=== PATIENT | female | born 1945 | race Hispanic/Latino ===

== ENCOUNTER 2021-09-22 09:59 | Outpatient (CLI) | payer MEDICARE | END 2021-09-22 10:00 | disposition home or self-care (01) | LOC: BURCT 09:59 | PROVIDERS: ATTEND Family Medicine | DX: S09.90XA Unspecified injury of head, initial encounter (principal) | CPT/HCPCS: 70450 ==

== ENCOUNTER 2022-05-03 12:47 | Observation (INO) | payer OTHER ==
[2022-05-03 15:04] LABS: #Basophils 0.1 thou/uL (0.0-0.2); #Eosinphils 0.2 thou/uL (0.0-0.7); #Monocytes 0.5 thou/uL (0.11-0.59); #Neutrophils 3.1 thou/uL (1.40-6.50); %Basophils 1.9 % (0.0-1.0); %Eosinophils 3.2 % (0.0-10.0); %Lymphocytes 34.1 % (21.0-51.0); %Monocytes 8.7 % (0.0-10.0); %Neutrophils 52.1 % (42.0-75.0); Hemoglobin 12.3 g/dL (12.0-16.0); Mean Corpuscular HGB CONC 32.5 g/dL (32.0-36.0); Mean Corpuscular Hemoglobin 31.9 pg (27.0-31.0); Mean Corpuscular Volume 98.2 fl (78.0-98.0); Platelet Count 273 10x3/uL (130-400); RBC Distribution Width 12.5 % (11.5-14.5); Red Blood Cell (RBC) Count 3.84 mill/uL (4.20-5.40)
[2022-05-03 15:20] LABS: ALT (SGPT) 8 U/L (8-55); AST (SGOT) 12 U/L (5-34); Albumin 3.6 g/dL (3.4-4.8); Alkaline Phosphatase 77 U/L (40-110); Anion Gap 13 mmol/L (10-20); BUN (Urea Nitrogen) 10 mg/dL (9.8-20.1); Bilirubin, Total 0.6 mg/dL (0.2-1.2); Calc. Creatinine Clearance 0 mL/min (70-130); Calcium 9.2 mg/dL (7.8-10.44); Carbon Dioxide 27 mmol/L (23-31); Chloride 101 mmol/L (98-107); Estimated GFR 49; Globulin 3.7 g/dL (2.4-3.5); Glucose 102 mg/dL (83-110); Potassium 3.8 mmol/L (3.5-5.1); Protein, Total 7.3 g/dL (5.8-8.1); Sodium 137 mmol/L (136-145)
[2022-05-03 15:27] LABS: Bilirubin Negative (Negative); Blood, Urine Negative (Negative); Clarity Slightly Cloudy (Clear); Glucose, Urine (Dipstick) Negative (Negative); Ketone, Urine Negative (Negative); Leukocyte Small (Negative); Nitrite Negative (Negative); Protein, Urine (Dipstick) Negative (Neg-Trace); Specific Gravity, Urine 1.015 (1.005-1.030); Urobilinogen 0.2 mg/dL (Less than 2)
[2022-05-03 15:35] LABS: Bacteria/HPF 4+ HPF (None Seen); RBC/HPF None Seen HPF (0-3)
[2022-05-03] MEDS ORDERED: FLU VACC QS2022-23(65YR UP)/PF 240 MCG/0.7 ML SYRINGE IM ONE (16:00)
[2022-05-03] MEDS ORDERED: Piperacillin/Tazobactam 3.375 GM in Sodium Chloride 0.9% 100 ML IVPB SCH (17:00)
[2022-05-03] MEDS ORDERED: Nitroglycerin 0.4 MG TAB (25 Tab Bottle) SL PRN (17:44)
[2022-05-03] MEDS ORDERED: Ondansetron ODT 4 MG TAB PO PRN (17:44)
[2022-05-03] MEDS ORDERED: Nystatin Powder 15 GM BOT TOP PRN (17:47)
[2022-05-03] MEDS ORDERED: CAFFEINE PO PRN (18:01)
[2022-05-03] MEDS ORDERED: ACETAMINOPHEN PO PRN (18:01)
[2022-05-03] MEDS ORDERED: ASPIRIN PO PRN (18:01)
[2022-05-03] MEDS ORDERED: traZODone HCl 50 MG TAB PO SCH (21:00)
[2022-05-03] MEDS ORDERED: FLUoxetine HCl 10 MG CAP PO SCH (21:00)
[2022-05-03] MEDS: Piperacillin/Tazobactam 3.375 GM in Sodium Chloride 0.9% 100 ML IVPB SCH (21:47)
[2022-05-04] MEDS: traMADol HCl 50 MG TAB PO PRN ×2 (04:10→10:50)
[2022-05-04] MEDS: Piperacillin/Tazobactam 3.375 GM in Sodium Chloride 0.9% 100 ML IVPB SCH ×2 (05:23→13:43)
[2022-05-04] MEDS ORDERED: Levothyroxine Sodium 50 MCG TAB PO SCH (06:00)
[2022-05-04 08:21] VITALS: TEMP 98
[2022-05-04 08:21] LABS: SARS-CoV-2 NAA Rapid Test Not Detected (NotDetected)
[2022-05-04] MEDS ORDERED: Losartan Potassium 50 MG TAB PO SCH (09:00)
[2022-05-04] MEDS ORDERED: Hydrochlorothiazide 25 MG TAB PO SCH (09:00)
[2022-05-04] MEDS ORDERED: Famotidine 20 MG TAB PO SCH (09:00)
[2022-05-04] MEDS ORDERED: glipiZIDE 5 MG TAB PO SCH (09:00)
[2022-05-04] MEDS ORDERED: Saccharomyces boulardii 250 MG CAP PO SCH (09:00)
[2022-05-04] MEDS ORDERED: Aspirin Chewable 81 MG TAB PO SCH (09:00)
[2022-05-04] MEDS ORDERED: Clopidogrel Bisulfate 75 MG TAB PO SCH (09:00)
[2022-05-04] MEDS ORDERED: Atorvastatin Calcium 40 MG TAB PO SCH (09:00)
[2022-05-04 14:23] VITALS: BP 152/92
== END 2022-05-04 14:56 | disposition swing bed (61) ==
LOC: BUR/OP 12:47 → BURMED 14:00 → EDSTATUS 14:22
PROVIDERS: ADMIT Family Medicine; ATTEND Family Medicine
DX: N39.0 Urinary tract infection, site not specified (principal); B96.20 Unspecified Escherichia coli [E. coli] as the cause of diseases classified elsewhere; R53.1 Weakness; I10 Essential (primary) hypertension; B37.2 Candidiasis of skin and nail; E78.5 Hyperlipidemia, unspecified; I25.10 Atherosclerotic heart disease of native coronary artery without angina pectoris; E11.9 Type 2 diabetes mellitus without complications; E03.9 Hypothyroidism, unspecified; K21.9 Gastro-esophageal reflux disease without esophagitis; M47.812 Spondylosis without myelopathy or radiculopathy, cervical region; E66.3 Overweight; Z68.35 Body mass index [BMI] 35.0-35.9, adult; Z85.3 Personal history of malignant neoplasm of breast; Z16.24 Resistance to multiple antibiotics; Z79.02 Long term (current) use of antithrombotics/antiplatelets; Z79.82 Long term (current) use of aspirin; Z79.84 Long term (current) use of oral hypoglycemic drugs; Z79.899 Other long term (current) drug therapy; Z95.5 Presence of coronary angioplasty implant and graft; Z20.822 Contact with and (suspected) exposure to COVID-19
CPT/HCPCS: 36415; 80053; 81001; 85025; 87077; 87086; J2543; J3490; Q0162; U0002

== ENCOUNTER 2022-05-04 15:03 | Inpatient (IN) | payer OTHER ==
[2022-05-04 15:32] VITALS: BMI 35.9
[2022-05-04] MEDS ORDERED: Nitroglycerin 0.4 MG TAB (25 Tab Bottle) SL PRN (16:49)
[2022-05-04] MEDS ORDERED: CAFFEINE PO PRN (17:29)
[2022-05-04] MEDS ORDERED: ASPIRIN PO PRN (17:29)
[2022-05-04] MEDS ORDERED: ACETAMINOPHEN PO PRN (17:29)
[2022-05-04] MEDS: FLUoxetine HCl 10 MG CAP PO SCH (20:42)
[2022-05-04] MEDS ORDERED: Piperacillin/Tazobactam 3.375 GM in Sodium Chloride 0.9% 100 ML IVPB SCH (20:45)
[2022-05-04] MEDS: traZODone HCl 50 MG TAB PO SCH (20:53)
[2022-05-05] MEDS: Levothyroxine Sodium 50 MCG TAB PO SCH (05:08)
[2022-05-05] MEDS ORDERED: Piperacillin/Tazobactam 3.375 GM in Sodium Chloride 0.9% 100 ML IVPB SCH (06:00)
[2022-05-05] MEDS ORDERED: Nystatin Powder 15 GM BOT TOP PRN (07:04)
[2022-05-05] MEDS: Hydrochlorothiazide 25 MG TAB PO SCH (08:20)
[2022-05-05] MEDS: Losartan 25 MG TAB PO SCH (08:20)
[2022-05-05] MEDS: Clopidogrel Bisulfate 75 MG TAB PO SCH (08:20)
[2022-05-05] MEDS: Aspirin Chewable 81 MG TAB PO SCH (08:20)
[2022-05-05] MEDS: glipiZIDE 5 MG TAB PO SCH (08:20)
[2022-05-05] MEDS: Famotidine 20 MG TAB PO SCH (08:21)
[2022-05-05] MEDS ORDERED: Meropenem 1 GM in Sodium Chloride 0.9% 100 ML IVPB SCH ×4 (09:45→21:00)
[2022-05-05] MEDS: Acetaminophen 325 MG TAB PO PRN (17:57)
[2022-05-05] MEDS: traZODone HCl 50 MG TAB PO SCH (20:44)
[2022-05-05] MEDS: FLUoxetine HCl 10 MG CAP PO SCH (20:44)
[2022-05-05] MEDS: Atorvastatin Calcium 40 MG TAB PO SCH (20:45)
[2022-05-05] MEDS: Meropenem 1 GM in Sodium Chloride 0.9% 100 ML IVPB SCH (21:14)
[2022-05-06] MEDS: Ondansetron ODT 4 MG TAB PO PRN (00:24)
[2022-05-06] MEDS: Levothyroxine Sodium 50 MCG TAB PO SCH (06:07)
[2022-05-06] MEDS: glipiZIDE 5 MG TAB PO SCH (08:52)
[2022-05-06] MEDS: Losartan 25 MG TAB PO SCH (08:52)
[2022-05-06] MEDS: Famotidine 20 MG TAB PO SCH (08:52)
[2022-05-06] MEDS: Hydrochlorothiazide 25 MG TAB PO SCH (08:53)
[2022-05-06] MEDS: Clopidogrel Bisulfate 75 MG TAB PO SCH (08:53)
[2022-05-06] MEDS: Aspirin Chewable 81 MG TAB PO SCH (08:53)
[2022-05-06] MEDS: Meropenem 1 GM in Sodium Chloride 0.9% 100 ML IVPB SCH ×2 (08:54→20:49)
[2022-05-06] MEDS: traMADol HCl 50 MG TAB PO PRN (15:21)
[2022-05-06] MEDS: Acetaminophen 325 MG TAB PO PRN (18:40)
[2022-05-06] MEDS: FLUoxetine HCl 10 MG CAP PO SCH (20:50)
[2022-05-06] MEDS: traZODone HCl 50 MG TAB PO SCH (20:51)
[2022-05-06] MEDS: Atorvastatin Calcium 40 MG TAB PO SCH (20:51)
[2022-05-07] MEDS: Levothyroxine Sodium 50 MCG TAB PO SCH (05:56)
[2022-05-07] MEDS: Meropenem 1 GM in Sodium Chloride 0.9% 100 ML IVPB SCH ×2 (08:23→21:03)
[2022-05-07] MEDS: Losartan 25 MG TAB PO SCH (08:24)
[2022-05-07] MEDS: Hydrochlorothiazide 25 MG TAB PO SCH (08:24)
[2022-05-07] MEDS: Clopidogrel Bisulfate 75 MG TAB PO SCH (08:24)
[2022-05-07] MEDS: glipiZIDE 5 MG TAB PO SCH (08:25)
[2022-05-07] MEDS: Aspirin Chewable 81 MG TAB PO SCH (08:25)
[2022-05-07] MEDS: Famotidine 20 MG TAB PO SCH (08:25)
[2022-05-07] MEDS: Docusate 100 MG CAP PO PRN (08:41)
[2022-05-07] MEDS: Ondansetron ODT 4 MG TAB PO PRN (12:05)
[2022-05-07] MEDS: FLUoxetine HCl 10 MG CAP PO SCH (21:04)
[2022-05-07] MEDS: Atorvastatin Calcium 40 MG TAB PO SCH (21:04)
[2022-05-07] MEDS: traZODone HCl 50 MG TAB PO SCH (21:05)
[2022-05-08] MEDS: Levothyroxine Sodium 50 MCG TAB PO SCH (05:42)
[2022-05-08] MEDS: Aspirin Chewable 81 MG TAB PO SCH (08:25)
[2022-05-08] MEDS: Docusate 100 MG CAP PO PRN (08:25)
[2022-05-08] MEDS: Famotidine 20 MG TAB PO SCH (08:25)
[2022-05-08] MEDS: Clopidogrel Bisulfate 75 MG TAB PO SCH (08:25)
[2022-05-08] MEDS: Losartan 25 MG TAB PO SCH (08:25)
[2022-05-08] MEDS: Hydrochlorothiazide 25 MG TAB PO SCH (08:26)
[2022-05-08] MEDS: glipiZIDE 5 MG TAB PO SCH (08:26)
[2022-05-08] MEDS: Meropenem 1 GM in Sodium Chloride 0.9% 100 ML IVPB SCH ×2 (08:30→20:27)
[2022-05-08] MEDS ORDERED: Nystatin 500,000 UNITS/5 ML UDCUP PO SCH (12:00)
[2022-05-08] MEDS: Nystatin 500,000 UNITS/5 ML UDCUP PO SCH (17:20)
[2022-05-08] MEDS: FLUoxetine HCl 10 MG CAP PO SCH (20:26)
[2022-05-08] MEDS: Atorvastatin Calcium 40 MG TAB PO SCH (20:26)
[2022-05-08] MEDS: traZODone HCl 50 MG TAB PO SCH (20:27)
[2022-05-09] MEDS: Levothyroxine Sodium 50 MCG TAB PO SCH (05:18)
[2022-05-09] MEDS: glipiZIDE 5 MG TAB PO SCH (08:36)
[2022-05-09] MEDS: Meropenem 1 GM in Sodium Chloride 0.9% 100 ML IVPB SCH ×2 (08:37→20:55)
[2022-05-09] MEDS: Clopidogrel Bisulfate 75 MG TAB PO SCH (08:37)
[2022-05-09] MEDS: Aspirin Chewable 81 MG TAB PO SCH (08:37)
[2022-05-09] MEDS: Famotidine 20 MG TAB PO SCH (08:37)
[2022-05-09] MEDS: Hydrochlorothiazide 25 MG TAB PO SCH (08:37)
[2022-05-09] MEDS: Losartan 25 MG TAB PO SCH (08:37)
[2022-05-09] MEDS: Nystatin 500,000 UNITS/5 ML UDCUP PO SCH ×3 (08:38→17:19)
[2022-05-09] MEDS: FLUoxetine HCl 10 MG CAP PO SCH (20:56)
[2022-05-09] MEDS: traMADol HCl 50 MG TAB PO PRN (20:57)
[2022-05-09] MEDS: Atorvastatin Calcium 40 MG TAB PO SCH (20:58)
[2022-05-09] MEDS: traZODone HCl 50 MG TAB PO SCH (20:58)
[2022-05-10] MEDS: Levothyroxine Sodium 50 MCG TAB PO SCH (05:26)
[2022-05-10] MEDS: Nystatin 500,000 UNITS/5 ML UDCUP PO SCH ×3 (08:32→16:22)
[2022-05-10] MEDS: Losartan 25 MG TAB PO SCH (08:44)
[2022-05-10] MEDS: Clopidogrel Bisulfate 75 MG TAB PO SCH (08:45)
[2022-05-10] MEDS: Hydrochlorothiazide 25 MG TAB PO SCH (08:45)
[2022-05-10] MEDS: Aspirin Chewable 81 MG TAB PO SCH (08:45)
[2022-05-10] MEDS: glipiZIDE 5 MG TAB PO SCH (08:45)
[2022-05-10] MEDS: Famotidine 20 MG TAB PO SCH (08:45)
[2022-05-10 17:00] VITALS: BP 169/88; TEMP 98.2
== END 2022-05-10 17:11 | disposition home or self-care (01) | DRG 690 ==
LOC: BURMED 15:03
PROVIDERS: ADMIT Family Medicine; ATTEND Family Medicine
DX: N39.0 Urinary tract infection, site not specified (principal); Z16.24 Resistance to multiple antibiotics; R53.1 Weakness; I10 Essential (primary) hypertension; E11.9 Type 2 diabetes mellitus without complications; E03.9 Hypothyroidism, unspecified; F41.9 Anxiety disorder, unspecified; F32.A Depression, unspecified; R26.89 Other abnormalities of gait and mobility; E78.5 Hyperlipidemia, unspecified; L30.4 Erythema intertrigo; B37.2 Candidiasis of skin and nail; I25.10 Atherosclerotic heart disease of native coronary artery without angina pectoris; Z90.710 Acquired absence of both cervix and uterus; Z90.49 Acquired absence of other specified parts of digestive tract; Z79.82 Long term (current) use of aspirin; Z79.890 Hormone replacement therapy; Z79.899 Other long term (current) drug therapy; Z95.5 Presence of coronary angioplasty implant and graft; Z98.890 Other specified postprocedural states
CPT/HCPCS: 36415; 80053; 81001; 85025; 87077; 87086; 87186; 96365; 96366; 96376; G0378; J2185; J2543; J3490; Q0162; U0002